=== PATIENT | male | born 1960 | race Caucasian/White ===

== ENCOUNTER 2017-11-03 16:12 | Emergency (ER) | payer OTHER ==
[2017-11-03 16:48] VITALS: BP 130/88
--- NOTE | 2017-11-03 17:16 | UC ---
Skin Complaint HPI - HPI Summary HPI Summary: right nasal area inside painful, reddened for a couple of days . no other symptoms or c/o at this time. didn't take anything otc - History of Current Complaint Chief Complaint: UCSkin Time Seen by Provider: 11/03/17 17:06 Stated Complaint: SKIN COMPLAINT (FACE) Onset/Duration: Lasting Days Timing: Constant Onset Severity: Moderate Current Severity: Moderate Location: Nose - right nares Aggravating Factor(s): Touch Alleviating Factor(s): Nothing Associated Signs & Symptoms: Positive: Negative - Allergy/Home Medications Allergies/Adverse Reactions: Allergies Allergy/AdvReac Type Severity Reaction Status Date / Time No Known Allergies Allergy Verified 11/03/17 16:48 Review of Systems Constitutional: Negative Skin: Negative Eyes: Negative ENT: Other - right nares pain Respiratory: Negative Cardiovascular: Negative Gastrointestinal: Negative Genitourinary: Negative Motor: Negative Neurovascular: Negative Musculoskeletal: Negative Neurological: Negative Psychological: Negative Is Patient Immunocompromised?: No All Other Systems Reviewed And Are Negative: Yes PMH/Surg Hx/FS Hx/Imm Hx Previously Healthy: Yes Respiratory History: Other - seasonal allergies Other Respiratory History: allergies - Surgical History Surgical History: Yes Surgery Procedure, Year, and Place: EYE SURGERY AND ADNOIDS ACHILD - Family History Known Family History: Positive: Other - [place], Parkinsons, Dementia - Social History Alcohol Use: Occasionally Substance Use Type: None Smoking Status (MU): Never Smoked Tobacco When Did the Patient Quit Smoking/Using Tobacco: quite ~ 2004 - Immunization History Most Recent Influenza Vaccination: Fall 2014 Physical Exam Triage Information Reviewed: Yes Appearance: Well-Appearing Vital Signs: Initial Vital Signs Temp 98.1 F 11/03/17 16:44 Pulse 91 11/03/17 16:44 Resp 16 11/03/17 16:44 BP 130/88 11/03/17 16:44 Pulse Ox 100 11/03/17 16:44 Vital Signs Reviewed: Yes ENT: Positive: Other - rt nares tender to touch/red/pimple/boil present Respiratory Exam: Normal Cardiovascular Exam: Normal Musculoskeletal Exam: Normal Psychological: Positive: Normal Response To Family Skin: Positive: Other - rt nares red skin intact boil/pimple present but no drainage present at this time Course/Dx - Course Course Of Treatment: take abx as directed with food to help prevent GI upset. increase fluid intake daily while on abx to help prevent dehyrdation. use saline spray nares to help moisten area throughout the day. f/u pcp 1 week if symptoms not resolving - Diagnoses Provider Diagnoses: boil/pimple in rt nares Discharge - Discharge Plan Condition: Good Disposition: HOME Prescriptions: Amoxicillin PO (*) [Amoxicillin 500 MG CAP*] 500 mg PO Q12H 7 Days #14 cap Patient Education Materials: Furunculosis and Carbunculosis (ED) Referrals: Triny Nichole MD [Primary Care Provider] - 1 Week
== END 2017-11-03 17:25 | disposition home or self-care (01) ==
LOC: UCCORT 16:12
DX: J34.0 Abscess, furuncle and carbuncle of nose (principal); R23.8 Other skin changes; Z87.891 Personal history of nicotine dependence
CPT/HCPCS: 99212; G0463

== ENCOUNTER 2018-02-08 08:03 | Emergency (ER) | payer OTHER ==
--- NOTE | 2018-02-08 08:13 | UC ---
Skin Complaint HPI - HPI Summary HPI Summary: 57 year old with skin complaint. HAS HAD A SORE LUMP IN RIGHT SIDE OF NOSE FOR 2 -3 DAYS . had same infection a month ago. took antibiotics and it went away but now has returned. no exposure to MRSA he thinks . no fever. no trauma to nose. no picking nose. no nose trimming. [ End ] - History of Current Complaint Time Seen by Provider: 02/08/18 08:11 Stated Complaint: NOSE COMPLAINT Hx Obtained From: Patient Onset/Duration: Gradual Onset Timing: Constant Onset Severity: Mild Current Severity: Moderate Location: Nose Aggravating Factor(s): Nothing Alleviating Factor(s): Nothing Associated Signs & Symptoms: Positive: Tenderness - Allergy/Home Medications Allergies/Adverse Reactions: Allergies Allergy/AdvReac Type Severity Reaction Status Date / Time No Known Allergies Allergy Verified 11/03/17 16:48 Home Medications: Home Medications Calcium Carbonate [Calcium] 02/08/18 [History] Vitamin A 02/08/18 [History Confirmed 02/08/18] Vitamin E 02/08/18 [History] Review of Systems Skin: Other - right snotril swelling and tenderness Is Patient Immunocompromised?: No All Other Systems Reviewed And Are Negative: Yes PMH/Surg Hx/FS Hx/Imm Hx Previously Healthy: Yes - Surgical History Surgical History: Yes Surgery Procedure, Year, and Place: EYE SURGERY AND ADNOIDS ACHILD - Family History Known Family History: Positive: Other - [place], Parkinsons, Dementia - Social History Occupation: Employed Full-time Alcohol Use: Occasionally Substance Use Type: None Smoking Status (MU): Never Smoked Tobacco When Did the Patient Quit Smoking/Using Tobacco: quite ~ 2004 - Immunization History Most Recent Influenza Vaccination: Fall 2014 Physical Exam Triage Information Reviewed: Yes Appearance: Well-Appearing, No Pain Distress, Well-Nourished Vital Signs Reviewed: Yes Eye Exam: Normal ENT: Positive: Other - right inferior turbinate swelling / redness and tenderness to inspection. left notril normal . some erythema on the tip of the nose. Negative: Nasal drainage Dental Exam: Normal Neck exam: Normal Neck: Positive: 1 Respiratory Exam: Normal Cardiovascular Exam: Normal Musculoskeletal Exam: Normal Neurological Exam: Normal Psychological Exam: Normal Skin: Positive: Other - see above. no drainage Course/Dx - Course Course Of Treatment: with recurrence will treat for MRSA at this time as it is in the nose. no requirement for culture at this time . pt aware and agreeable. RTO if any concerns. go to PCP as well. he is aware of SE - Differential Diagnoses - Skin Complaint Differential Diagnoses: Abscess - Diagnoses Provider Diagnoses: abscess right nostril / nare Discharge - Sign-Out/Discharge Documenting (check all that apply): Discharge - Discharge Plan Condition: Good Disposition: HOME Prescriptions: Doxycycline Hyclate 100 mg PO BID 20 Days #10 tablet Mupirocin 2% OINT* [Bactroban 2 % Oint*] 1 applic TOPICAL BID #1 tube Patient Education Materials: Abscess (ED) Referrals: Triny Nichole MD [Primary Care Provider] - 4 Days - Billing Disposition and Condition Condition: GOOD Disposition: HOME
[2018-02-08 08:23] VITALS: BP 118/80
== END 2018-02-08 08:52 | disposition home or self-care (01) ==
LOC: UCCORT 08:03
DX: J34.0 Abscess, furuncle and carbuncle of nose (principal); Z87.891 Personal history of nicotine dependence
CPT/HCPCS: 99212; G0463